=== PATIENT | male | born 1970 | race Hispanic/Latino ===

== ENCOUNTER 2018-07-30 10:13 | Inpatient (IN) | payer OTHER, MEDICARE ==
[~2018-07-30] VITALS: Ht 127 cm; Wt 63.5 kg
[2018-07-30 13:21] LABS: EOSINOPHILS % (AUTO) 0.6 % (0.0-8.0); LYMPHOCYTES % (AUTO) 27.1 % (21.0-51.0); MEAN CORPUSCULAR HEMOGLOBIN 35.9 pg (27.0-33.0); MEAN CORPUSCULAR HGB CONC 34.3 g/dL (32.0-36.0); MEAN CORPUSCULAR VOLUME 104.9 fL (79-99); MONOCYTES % (AUTO) 12.1 % (3.0-13.0); NEUTROPHILS % (AUTO) 59.2 % (40.0-77.0); NUCLEATED RED BLOOD CELLS 0.2 % (0.0-0.19); PLATELET COUNT (AUTO) 201 K/uL (130-400); RED BLOOD CELL COUNT(AUTO) 4.77 MIL/uL (4.50-6.20); RED CELL DISTRIBUTION WIDTH 13.6 % (11.0-15.5); WHITE BLOOD COUNT (AUTO) 3.7 K/uL (4.8-10.8)
[2018-07-30 13:34] LABS: ALBUMIN 3.5 g/dL (3.5-5.0); BILIRUBIN,DIRECT 0.1 mg/dL (0.0-0.3); BILIRUBIN,TOTAL 0.5 mg/dL (0.2-1.0); TOTAL PROTEIN, SERUM 8.1 g/dL (6.0-8.3)
[2018-07-30] MEDS ORDERED: SODIUM CHLORIDE 0.9% 1000ML 1,000 ML IV ONE (14:48)
[2018-07-30] MEDS ORDERED: HYDRALAZINE HCL 20 MG/ML VIAL IV PRN (16:00)
[2018-07-30] MEDS ORDERED: ONDANSETRON HCL 4 MG/2 ML VIAL IV PRN (16:00)
[2018-07-30] MEDS ORDERED: KETOROLAC TROMETHAMINE 30MG/ML ONE (16:47)
[2018-07-30 17:11] LABS: APPEARANCE,URINE CLEAR (CLEAR); BILIRUBIN,URINE Negative (NEGATIVE); COLOR,URINE Yellow (YELLOW); GLUCOSE, URINE (UA) Negative (NEGATIVE); KETONES,URINE Negative (NEGATIVE); LEUKOCYTE ESTERASE ,URINE Negative (NEGATIVE); NITRATE,URINE Negative (NEGATIVE); OCCULT BLOOD,URINE Negative (NEGATIVE); PH,URINE 7.5 (5.0-8.0); PROTEIN,URINE Negative (NEGATIVE); UROBILINOGEN,URINE 0.2 mg/dL (0.2-1.0)
[2018-07-30 17:57] VITALS: BP 122/55
[2018-07-30 19:20] VITALS: BP 113/74
[2018-07-30] MEDS ORDERED: ZOSYN 3.375GM+NS 50ML 50 ML IV SCH (21:00)
[2018-07-30] MEDS: FAMOTIDINE/PF 20 MG/2 ML VIAL IV SCH (21:01)
[2018-07-30] MEDS: MORPHINE SULFATE 2 MG/ML 1ML SYG IV PRN (21:02)
[2018-07-30] MEDS: SODIUM CHLORIDE 0.9% 1000ML 1,000 ML IV SCH (21:03)
[2018-07-31 00:20] VITALS: BP 99/59
[2018-07-31] MEDS: SODIUM CHLORIDE 0.9% 1000ML 1,000 ML IV SCH ×3 (01:58→21:58)
[2018-07-31 04:12] VITALS: BP 112/67
[2018-07-31 05:34] LABS: HEMATOCRIT 46.7 % (42-54); MEAN CORPUSCULAR HEMOGLOBIN 35.3 pg (27.0-33.0); MEAN CORPUSCULAR HGB CONC 33.7 g/dL (32.0-36.0); MEAN CORPUSCULAR VOLUME 104.6 fL (79-99); PLATELET COUNT (AUTO) 199 K/uL (130-400); RED BLOOD CELL COUNT(AUTO) 4.46 MIL/uL (4.50-6.20); RED CELL DISTRIBUTION WIDTH 13.4 % (11.0-15.5); WHITE BLOOD COUNT (AUTO) 2.8 K/uL (4.8-10.8)
[2018-07-31 05:44] LABS: CREATININE 0.9 mg/dL (0.5-1.5); POTASSIUM 3.5 mmol/L (3.5-5.1)
[2018-07-31 07:00] VITALS: BP 126/76
[2018-07-31 07:45] LABS: BASOPHILS % (MANUAL) 3 % (0-2); EOSINOPHILS % (MANUAL) 3 % (1-6); LYMPHOCYTES % (MANUAL) 31 % (22-44); MAN.DIFF COMMENT-IMPRESSION MANUAL DIFFERENTIAL; MONOCYTES % (MANUAL) 13 % (2-9); PLATELET MORPHOLOGY COMMENT ADEQUATE; SEGMENTED NEUTROPHILS % 50 % (40-70)
[2018-07-31] MEDS ORDERED: ZOLP10TA6 PO (10:19)
[2018-07-31] MEDS ORDERED: RIVA4.6T TD (10:19)
[2018-07-31] MEDS ORDERED: MEMA10TA20 PO (10:19)
[2018-07-31 11:00] VITALS: BP 109/67
[2018-07-31] MEDS: FAMOTIDINE/PF 20 MG/2 ML VIAL IV SCH ×2 (11:24→20:06)
[2018-07-31] MEDS: MORPHINE SULFATE 2 MG/ML 1ML SYG IV PRN ×2 (15:21→20:07)
[2018-07-31 16:00] VITALS: BP 110/66
--- NOTE | 2018-07-31 16:39 | NUR ---
MICHAEL FERMIN SEEN W FAMILY MEMBERS AT BEDSIDE. PT HAS DOWNS, CAN VERBIZE NEEDS, BUT IS DEPENDENT FOR MANY ADLS. ADMIT WITH ABDOINAL PAIN. SEB VARELA CONSULT. LIVE WITH MOTHER, HAS NO DMES, AND NO PORIVDER SERVICES, PLAN SIGIFREDO QUINTANA CM TO FOLLOW NEEDED Addendum: 08/03/18 at 1641 by SLOAN SAVAGE RN CM Amended: Links added.
[2018-07-31] MEDS: DOCUSATE NA 100MG/10ML UDCUP PO SCH (21:00)
[2018-08-01 00:18] VITALS: BP 105/50
[2018-08-01 04:15] VITALS: BP 105/50
[2018-08-01 07:00] VITALS: BP 114/69
[2018-08-01 11:00] VITALS: BP 105/66
[2018-08-01] MEDS ORDERED: LORAZEPAM 2 MG/ML 1 ML VIAL IVP PRN (11:30)
[2018-08-01] MEDS: FAMOTIDINE/PF 20 MG/2 ML VIAL IV SCH ×2 (12:33→20:16)
[2018-08-01] MEDS: DOCUSATE NA 100MG/10ML UDCUP PO SCH ×2 (12:33→20:16)
[2018-08-01] MEDS: LACTULOSE 20 GM/30 ML UDCUP PO PRN ×2 (12:33→20:16)
[2018-08-01] MEDS: SODIUM CHLORIDE 0.9% 1000ML 1,000 ML IV SCH ×2 (12:35→20:16)
--- NOTE | 2018-08-01 13:00 | NUR ---
DR SUAREZ IN TO SEE PATIENT ORDERED LOW FAT DIET AND NO PLAN SURGERY
[2018-08-01 16:00] VITALS: BP 116/75
[2018-08-01 20:31] VITALS: BP 128/68
[2018-08-02 00:37] VITALS: BP 106/60
[2018-08-02] MEDS: SODIUM CHLORIDE 0.9% 1000ML 1,000 ML IV SCH (03:58)
[2018-08-02 04:32] VITALS: BP 107/66
[2018-08-02] MEDS: LACTULOSE 20 GM/30 ML UDCUP PO PRN (06:12)
[2018-08-02 08:00] VITALS: BP 113/81
[2018-08-02] MEDS: FAMOTIDINE/PF 20 MG/2 ML VIAL IV SCH ×2 (09:35→21:10)
[2018-08-02] MEDS: DOCUSATE NA 100MG/10ML UDCUP PO SCH ×2 (09:35→21:00)
[2018-08-02 12:01] VITALS: BP 101/50
[2018-08-02] MEDS ORDERED: MAGNESIUM CITRATE 296 ML SOLUTION PO SCH (13:45)
[2018-08-02 16:00] VITALS: BP 95/47
--- NOTE | 2018-08-02 18:00 | NUR ---
PATIENT GIVEN MEDICATION FOR BOWEL MOVEMENT , LAST BOWEL MOVEMENT REPORT 07/27/18. PATIENT WAS ABLE TO HAVE LARGE BOWEL MOVEMENT X2
[2018-08-02 21:49] VITALS: BP 132/80
[2018-08-03 00:29] VITALS: BP 116/83
[2018-08-03 05:10] VITALS: BP 112/69
[2018-08-03 06:27] LABS: HEMATOCRIT 44.8 % (42-54); MEAN CORPUSCULAR HGB CONC 34.2 g/dL (32.0-36.0); MEAN CORPUSCULAR VOLUME 105.2 fL (79-99); NUCLEATED RED BLOOD CELLS 0.1 % (0.0-0.19); PLATELET COUNT (AUTO) 164 K/uL (130-400); RED BLOOD CELL COUNT(AUTO) 4.26 MIL/uL (4.50-6.20); RED CELL DISTRIBUTION WIDTH 13.2 % (11.0-15.5); WHITE BLOOD COUNT (AUTO) 3.6 K/uL (4.8-10.8)
[2018-08-03 06:45] LABS: CREATININE 0.9 mg/dL (0.5-1.5); POTASSIUM 3.6 mmol/L (3.5-5.1)
[2018-08-03 08:55] VITALS: BP 160/83
[2018-08-03] MEDS: DOCUSATE NA 100MG/10ML UDCUP PO SCH (08:55)
[2018-08-03] MEDS: FAMOTIDINE/PF 20 MG/2 ML VIAL IV SCH (08:57)
[2018-08-03] MEDS ORDERED: ENOXAPARIN SODIUM 30 MG/0.3 ML SQ SCH (09:00)
[2018-08-03] MEDS ORDERED: POLY17PO4 PO (11:50)
--- NOTE | 2018-08-03 13:06 | NUR ---
DISCHARGE INSTRUCTION GIVEN TO MOTHER AND SHE VERBALIZED UNDERSTANDING , IV DISCONTINUE WITH CATHETER INTACT AND SITE COVERED WITH BIND-AIDE. INSTRUCTION GIVEN TO FOLLOW-UP WITH PCP DR AHUMADA IN 1-[address] SCHAFER IF NEEDED ( MOTHER HAS DR SCHAFER CARD WITH NUMBER TO CLINIC) NO QUESTIONS OR CONCERNS AND PATIENT WAS TAKING DOWN STRAIR TO [place] VIA HIS OWN WHEELCHAIR AND LEFT WITH FAMILY FOR HOME.
== END 2018-08-03 13:00 | disposition home or self-care (01) | DRG 444 ==
LOC: EDH 10:13 → EDHIP 14:55 → 3DH 17:44
PROVIDERS: ADMIT Hospitalist; ATTEND Hospitalist
DX: K80.00 Calculus of gallbladder with acute cholecystitis without obstruction (principal); K85.90 Acute pancreatitis without necrosis or infection, unspecified; Q90.9 Down syndrome, unspecified; F02.80 Dementia in other diseases classified elsewhere, unspecified severity, without behavioral disturbance, psychotic disturbance, mood disturbance, and anxiety; G30.9 Alzheimer's disease, unspecified; K43.9 Ventral hernia without obstruction or gangrene; K59.00 Constipation, unspecified; Z88.0 Allergy status to penicillin
CPT/HCPCS: 36415; 74176; 76705; 80048; 80076; 81003; 83690; 85025; 85027; G0378; J1650; J1885; J2405; J3490; J7030

== ENCOUNTER 2019-11-11 18:03 | Emergency (ER) | payer OTHER, MEDICARE ==
[~2019-11-11 18:03] MED LIST: MEMA10TA55 PO; POLY17PO4 PO; RIVA4.6T TD; ZOLP10TA6 PO
[2019-11-11 18:45] LABS: HEMATOCRIT 46.7 % (42-54); LYMPHOCYTES % (AUTO) 26.2 % (21.0-51.0); MEAN CORPUSCULAR HEMOGLOBIN 34.5 pg (27.0-33.0); MEAN CORPUSCULAR HGB CONC 34.3 g/dL (32.0-36.0); MEAN CORPUSCULAR VOLUME 100.6 fL (79-99); MONOCYTES % (AUTO) 9.3 % (3.0-13.0); NEUTROPHILS % (AUTO) 62.2 % (40.0-77.0); PLATELET COUNT (AUTO) 172 K/uL (130-400); RED BLOOD CELL COUNT(AUTO) 4.64 MIL/uL (4.50-6.20); RED CELL DISTRIBUTION WIDTH 12.2 % (11.0-15.5)
[2019-11-11 18:56] LABS: CREATININE 0.8 mg/dL (0.5-1.5); POTASSIUM 4.5 mmol/L (3.5-5.1)
[2019-11-11 19:01] LABS: ALBUMIN 3.1 g/dL (3.5-5.0); BILIRUBIN,TOTAL 0.5 mg/dL (0.2-1.0); TOTAL PROTEIN, SERUM 7.5 g/dL (6.0-8.3)
[2019-11-11 20:36] LABS: EOSINOPHILS % (MANUAL) 1 % (1-6); LYMPHOCYTES % (MANUAL) 29 % (22-44); MONOCYTES % (MANUAL) 8 % (2-9); SEGMENTED NEUTROPHILS % 62 % (40-70)
[2019-11-11 20:37] LABS: MAN.DIFF COMMENT-IMPRESSION MANUAL DIFFERENTIAL; PLATELET MORPHOLOGY COMMENT ADEQUATE
== END 2019-11-12 00:39 | disposition home or self-care (01) ==
LOC: EDH 18:03
DX: R19.5 Other fecal abnormalities (principal); F03.90 Unspecified dementia, unspecified severity, without behavioral disturbance, psychotic disturbance, mood disturbance, and anxiety; Z88.0 Allergy status to penicillin; Z88.8 Allergy status to other drugs, medicaments and biological substances; Z79.899 Other long term (current) drug therapy
CPT/HCPCS: 36415; 80053; 82270; 85025; 93005

== ENCOUNTER 2020-04-15 15:27 | Inpatient (IN) | payer OTHER, MEDICARE ==
[~2020-04-15] VITALS: Ht 134.6 cm; Wt 72.1 kg
[2020-04-15 15:56] LABS: BASOPHILS % (AUTO) 1.8 % (0.0-5.0); EOSINOPHILS % (AUTO) 1.3 % (0.0-8.0); HEMATOCRIT 41.8 % (42-54); LYMPHOCYTES % (AUTO) 35.9 % (21.0-51.0); MEAN CORPUSCULAR HEMOGLOBIN 35.6 pg (27.0-33.0); MEAN CORPUSCULAR HGB CONC 36.1 g/dL (32.0-36.0); MEAN CORPUSCULAR VOLUME 98.6 fL (79-99); MONOCYTES % (AUTO) 19.3 % (3.0-13.0); NEUTROPHILS % (AUTO) 41.3 % (40.0-77.0); PLATELET COUNT (AUTO) 208 K/uL (130-400); RED BLOOD CELL COUNT(AUTO) 4.24 MIL/uL (4.50-6.20); RED CELL DISTRIBUTION WIDTH 12.9 % (11.0-15.5); WHITE BLOOD COUNT (AUTO) 2.2 K/uL (4.8-10.8)
[2020-04-15 16:33] LABS: INR 0.96 (0.85-1.15); PARTIAL THROMBOPLASTIN TIME 29.2 SEC (26.3-35.5); PROTHROMBIN TIME 10.4 SEC (9.6-11.6)
[2020-04-15 16:46] LABS: APPEARANCE,URINE Clear (CLEAR); BILIRUBIN,URINE Negative (NEGATIVE); COLOR,URINE Yellow (YELLOW); GLUCOSE, URINE (UA) Negative (NEGATIVE); KETONES,URINE Negative (NEGATIVE); LEUKOCYTE ESTERASE ,URINE Negative (NEGATIVE); NITRATE,URINE Negative (NEGATIVE); OCCULT BLOOD,URINE Negative (NEGATIVE); PH,URINE 7.5 (5.0-8.0); PROTEIN,URINE Negative (NEGATIVE); UROBILINOGEN,URINE 0.2 mg/dL (0.2-1.0)
[2020-04-15 16:53] LABS: AMPHET/METH SCREEN,URINE NEGATIVE (NEGATIVE); BARBITURATE SCREEN, URINE NEGATIVE (NEGATIVE); BENZODIAZEPINES SCREEN,URINE NEGATIVE (NEGATIVE); CANNABINOID SCREEN,URINE NEGATIVE (NEGATIVE); COCAINE SCREEN,URINE NEGATIVE (NEGATIVE); OPIATE SCREEN,URINE NEGATIVE (NEGATIVE); PHENCYCLIDINE SCREEN,URINE NEGATIVE (NEGATIVE)
[2020-04-15 16:54] LABS: ALBUMIN 2.8 g/dL (3.5-5.0); BILIRUBIN,TOTAL 0.3 mg/dL (0.2-1.0); CREATININE 0.6 mg/dL (0.5-1.5); POTASSIUM 4.6 mmol/L (3.5-5.1); TOTAL PROTEIN, SERUM 7.1 g/dL (6.0-8.3)
[2020-04-15 17:50] LABS: LYMPHOCYTES % (MANUAL) 37 % (22-44); MAN.DIFF COMMENT-IMPRESSION MANUAL DIFFERENTIAL; MONOCYTES % (MANUAL) 15 % (2-9); PLATELET MORPHOLOGY COMMENT ADEQUATE; SEGMENTED NEUTROPHILS % 48 % (40-70)
[2020-04-15] MEDS ORDERED: LORAZEPAM 2 MG/ML 1 ML VIAL IVP PRN (18:15)
[2020-04-15] MEDS: SODIUM CHLORIDE 0.9% 1000ML 1,000 ML IV SCH (18:15)
[2020-04-16 02:22] LABS: CREATININE 0.4 mg/dL (0.5-1.5); POTASSIUM 3.9 mmol/L (3.5-5.1)
[2020-04-16] MEDS: SODIUM CHLORIDE 0.9% 1000ML 1,000 ML IV SCH ×2 (07:35→20:55)
[2020-04-16 07:45] LABS: CREATININE 0.5 mg/dL (0.5-1.5); POTASSIUM 4.2 mmol/L (3.5-5.1)
[2020-04-16] MEDS ORDERED: LORAZEPAM 2 MG/ML 1 ML VIAL ONE (14:19)
[2020-04-16 15:43] LABS: CREATININE 0.6 mg/dL (0.5-1.5); POTASSIUM 4.5 mmol/L (3.5-5.1)
[2020-04-16 17:35] VITALS: BP 98/61
[2020-04-16 20:33] VITALS: BP 96/59
[2020-04-16 23:21] LABS: CREATININE 0.5 mg/dL (0.5-1.5); POTASSIUM 4.2 mmol/L (3.5-5.1)
[2020-04-17] VITALS (9 sets, daily range): BP systolic 90–115; BP diastolic 48–73
[2020-04-17] MEDS ORDERED: SERT50TA12 PO (04:07)
[2020-04-17] MEDS ORDERED: PRIM50TA23 PO (04:07)
[2020-04-17 07:09] LABS: CREATININE 0.5 mg/dL (0.5-1.5); POTASSIUM 4.1 mmol/L (3.5-5.1)
[2020-04-17 15:00] LABS: CREATININE 0.5 mg/dL (0.5-1.5); POTASSIUM 4.6 mmol/L (3.5-5.1)
--- NOTE | 2020-04-17 15:49 | NUR ---
RE: Pt has tube feedings of osmolite 8 oz q 4 hours ordered, hospital does not stock osmolite: Per vault attendant Benjie, may substitute with Vital AF at same amounts as done at home. She will review case in the am and adjust as necessary.
--- NOTE | 2020-04-17 18:03 | NUR ---
D/C PLAN CM spoke to patient's flake or shred roll operator Estrella Silva. States she and her care for patient at home. Denies having any home health or provider services. States patient has hospital bed, walker, w/c, recliner, and asa lift. Reports patient is mostly bed bound but does transfer to w/c. CM offered short term snf/rehab as possible discharge option. Foster mother declined. Plan to home. No needs verbalized or identified. CM to follow up. Addendum: 04/17/20 at 1805 by DARRIAN ARREOLA CM Amended: Links added.
[2020-04-17] MEDS ORDERED: SODIUM CHLORIDE 0.9% 500ML 500 ML IV ONE ×2 (20:15→20:19)
[2020-04-17] MEDS: SODIUM CHLORIDE 0.9% 1000ML 1,000 ML IV SCH ×3 (20:22→23:36)
--- NOTE | 2020-04-17 22:24 | NUR ---
2012: I spoke to regarding patient's low b/p during the day, and at this time at 90/40's. Orders received for 500 normal saline flush. Patient's mother made aware, verbalized understanding. 2099: Bloodpressure up to 95/54, rechecked 30 minutes after bolus administered. 2208: Patient's mother called, went to check on patient. Noted twitching to arms, according to mother that is normal for the patient. She stated she was concerned due to patient feels like he has phlegm in his lungs. Noted patient's HOB at 30%. Mother encouraged to keep 45%, to prevent aspiration. Patient did noted to have rhonchi, informed patient . Informed him that was coming by to do his rounds. HOB elevated vital signs 110/56, 81, 02 sat at 99% with 02 at 2 liters per n/c.
--- NOTE | 2020-04-17 23:08 | NUR ---
came by to examine patient informed him that patient has rhonchi, he stated it was due to the normal saline. Orders received to decrease IVF to 50mls/hr. Doctor then went in to see patient and speak with patient's mother. Informed her that he is having low sodium levels and not sure if it's because of the home medications. Mother concerned over the rhonchi, and patient's constipation. Doctor stated he was decreasing the IVF rate and also ordering a chest xray for the morning, and would start patient on senna two tablets daily. doctor aware of patient's twitching, informed the mother that patient probably needing his home medicaiton already. but that for tonight if patient continues restless and twitching Ativen can be administered IV to help him rest. Mother verbalized understanding.
[2020-04-17 23:14] LABS: CREATININE 0.4 mg/dL (0.5-1.5); POTASSIUM 3.9 mmol/L (3.5-5.1)
[2020-04-18 04:12] VITALS: BP 92/55
--- NOTE | 2020-04-18 08:00 | NUR ---
CHEST XRAY 2 view chest xray changed to 1 view pt unable to stand up for 2 view as ordered
[2020-04-18 08:41] VITALS: BP 95/55
[2020-04-18 12:53] VITALS: BP 100/62
[2020-04-18] MEDS: SENNOSIDES 8.6 MG TABLET PO SCH (13:42)
[2020-04-18] MEDS: SODIUM CHLORIDE 0.9% 1000ML 1,000 ML IV SCH ×2 (13:45→19:48)
--- NOTE | 2020-04-18 14:34 | NUR ---
RD NOTIFICATION Pt admitted with Seizures and hyponatremia. Pt with Hx of Down syndrome, oropharyngeal dysphagia. Recommend 4.5 cans Vital AF 1.2/Osmolite 1.2 per day Recommend flushes of 30mls before and after each feeding during hospital stay Recommendations faxed to [facility], RN notified RD NOTE: Recommend increase in formula Pt receives as previous regimen not meeting nutritional needs, flushes surpass fluid needs as well. Pt's mother notified of nutrition recommendations. Mother in agreement. Monitored lab: Na 129, Cl 97, Cr 0.4, BG 107, Ca 8.2, Alb 2.8. Pt obesity Class II. RD to continue to monitor. Addendum: 04/18/20 at [address] RD Amended: Links added.
[2020-04-18 17:30] VITALS: BP 99/70
[2020-04-18 18:39] LABS: CREATININE 0.5 mg/dL (0.5-1.5); POTASSIUM 4.3 mmol/L (3.5-5.1)
[2020-04-18 20:00] VITALS: BP 101/67
[2020-04-18] MEDS: HONEY 1 APPL/ML TUBE TP SCH (20:30)
[2020-04-18] MEDS: PRIMIDONE 50 MG TAB PO SCH (21:00)
--- NOTE | 2020-04-18 21:19 | NUR ---
Primidone 50 mg tablet As per mother's report, she already gave the medicine at 6pm.
[2020-04-19 01:32] VITALS: BP 113/68
[2020-04-19 06:35] VITALS: BP 99/70
[2020-04-19 08:55] VITALS: BP 149/97
[2020-04-19] MEDS: PRIMIDONE 50 MG TAB PO SCH (09:00)
[2020-04-19] MEDS: SENNOSIDES 8.6 MG TABLET PO SCH (11:21)
[2020-04-19 12:54] VITALS: BP 116/69
[2020-04-19] MEDS: HONEY 1 APPL/ML TUBE TP SCH (14:53)
--- NOTE | 2020-04-19 15:17 | NUR ---
CM Note: EMS arranged Received call from primary nurse Annie GRAY, pt will need EMS transport to home, pt has DC order today. CM arranged and faxed EMS today. Request for EMS sent to [facility], confirmation received. Primary nurse to call [facility] once pt ready to DC . Primary nurse Annie GRAY made aware. CM to continue to follow up.
[2020-04-19] MEDS ORDERED: FLU VACC QS2020-21(6MOS UP)/PF 60 MCG/0.5 ML ML IM ONE (15:45)
== END 2020-04-19 21:50 | disposition home or self-care (01) | DRG 101 ==
LOC: EDH 15:27 → EDHIP 17:52 → 3DH 04-16 16:28
PROVIDERS: ADMIT Internal Medicine; ATTEND Internal Medicine
DX: R56.9 Unspecified convulsions (principal); E87.1 Hypo-osmolality and hyponatremia; F72 Severe intellectual disabilities; N39.0 Urinary tract infection, site not specified; R13.12 Dysphagia, oropharyngeal phase; G25.3 Myoclonus; H70.91 Unspecified mastoiditis, right ear; Z93.1 Gastrostomy status; Z23 Encounter for immunization; Q90.9 Down syndrome, unspecified; Z79.899 Other long term (current) drug therapy; Z88.0 Allergy status to penicillin
CPT/HCPCS: 36415; 70450; 71045; 80048; 80053; 80305; 81003; 82550; 82570; 83721; 83930; 83935; 84484; 84540; 85025; 85610; 85730; 93005; G0008; G0378; J2060; J7030; J7040; Q2035

== ENCOUNTER 2021-05-26 11:57 | Inpatient (IN) | payer MEDICARE ==
[~2021-05-26] VITALS: Ht 157.5 cm; Wt 51.7 kg
[~2021-05-26 11:57] MED LIST changes: -MEMA10TA55 PO; -POLY17PO4 PO; +PRIM50TA23 PO; -RIVA4.6T TD
[2021-05-26 12:18] LABS: APPEARANCE,URINE Clear (CLEAR); BILIRUBIN,URINE Negative (NEGATIVE); COLOR,URINE Yellow (YELLOW); GLUCOSE, URINE (UA) Negative (NEGATIVE); KETONES,URINE Negative (NEGATIVE); LEUKOCYTE ESTERASE ,URINE Trace (NEGATIVE); NITRATE,URINE Negative (NEGATIVE); OCCULT BLOOD,URINE Negative (NEGATIVE); PH,URINE 7.5 (5.0-8.0); PROTEIN,URINE Negative (NEGATIVE)
[2021-05-26] MEDS ORDERED: LORAZEPAM 2 MG/ML 1 ML VIAL IVP SCH (12:30)
[2021-05-26] MEDS ORDERED: 0.9%NACL 1000ML 1,000 ML IV SCH (12:30)
[2021-05-26 12:36] LABS: CREATININE 0.6 mg/dL (0.5-1.5); POTASSIUM 3.8 mmol/L (3.5-5.1)
[2021-05-26 12:39] LABS: BACTERIA,URINE None Seen /HPF (None Seen); RBC,URINE 0-1 /HPF (0-1); SQUAMOUS EPITHELIAL CELL,UR 0-2 /HPF (0-2); WBC,URINE 0-1 /HPF (0-1)
[2021-05-26 12:40] LABS: ALBUMIN 2.9 g/dL (3.5-5.0); BILIRUBIN,TOTAL 0.5 mg/dL (0.2-1.0)
[2021-05-26 13:34] LABS: BASOPHILS % (AUTO) 0.5 % (0.0-5.0); HEMATOCRIT 48.5 % (42-54); MEAN CORPUSCULAR HEMOGLOBIN 35.2 pg (27.0-33.0); MEAN CORPUSCULAR VOLUME 103.4 fL (79-99); NEUTROPHILS % (AUTO) 82.3 % (40.0-77.0); PLATELET COUNT (AUTO) 161 K/uL (130-400); RED BLOOD CELL COUNT(AUTO) 4.69 MIL/uL (4.50-6.20); RED CELL DISTRIBUTION WIDTH 13.1 % (11.0-15.5); WHITE BLOOD COUNT (AUTO) 6.6 K/uL (4.8-10.8)
[2021-05-26] MEDS ORDERED: CEFTRIAXONE 1G VIAL IVP ONE (14:30)
[2021-05-26] MEDS ORDERED: 0.9% NACL 250ML 250 ML IV ONE (14:30)
[2021-05-26] MEDS ORDERED: AZITHROMYCIN 500MG+NS 250ML IV ONE (14:30)
[2021-05-26] MEDS ORDERED: LEVE250T2 GT (16:57)
[2021-05-26] MEDS ORDERED: ZOLP5TAB8 GT (16:57)
[2021-05-26] MEDS ORDERED: ONDANSETRON 4MG INJ IVP PRN (17:30)
[2021-05-26] MEDS ORDERED: ACETAMINOPHEN 650 MG/20.3 ML UDCUP PEG PRN (17:30)
[2021-05-26] MEDS ORDERED: 0.9%NACL 100ML 100 ML ONE (18:36)
[2021-05-26] MEDS: MEROPENEM 1 GM VIAL IVP SCH (18:51)
[2021-05-26 22:40] VITALS: BP 101/63
[2021-05-26] MEDS ORDERED: LORAZEPAM 2 MG/ML 1 ML VIAL IVP PRN (23:00)
[2021-05-27] VITALS: BP 101/63
[2021-05-27] MEDS: IPRATROPIUM/ALBUTEROL SULFATE 3 ML SOLUTION IH SCH ×5 (00:04→23:40)
[2021-05-27 02:00] VITALS: BP 116/66
[2021-05-27] MEDS: MEROPENEM 1 GM VIAL IVP SCH ×3 (02:37→20:29)
[2021-05-27 02:45] LABS: ABG BASE EXCESS 0.2 mmol/L (-2.0-3.0); ABG OXYGEN SATURATION 97.5 % (95.0-99.0); ABG PCO2 41 mmHg (35-48)
[2021-05-27 06:06] LABS: HEMATOCRIT 47.8 % (42-54); MEAN CORPUSCULAR HEMOGLOBIN 35.5 pg (27.0-33.0); MEAN CORPUSCULAR HGB CONC 34.7 g/dL (32.0-36.0); MEAN CORPUSCULAR VOLUME 102.4 fL (79-99); RED BLOOD CELL COUNT(AUTO) 4.67 MIL/uL (4.50-6.20); RED CELL DISTRIBUTION WIDTH 13.2 % (11.0-15.5); WHITE BLOOD COUNT (AUTO) 11.2 K/uL (4.8-10.8)
[2021-05-27] MEDS: ACETYLCYSTEINE 20% 200MG/ML 4ML VIAL IH SCH ×4 (06:23→23:40)
[2021-05-27 06:31] LABS: HEMOGLOBIN A1C 4.8 % (4.0-6.0)
[2021-05-27 06:41] LABS: ALBUMIN 2.7 g/dL (3.5-5.0); BILIRUBIN,TOTAL 0.8 mg/dL (0.2-1.0); CREATININE 0.6 mg/dL (0.5-1.5); POTASSIUM 3.9 mmol/L (3.5-5.1); TOTAL PROTEIN, SERUM 7.6 g/dL (6.0-8.3)
[2021-05-27 08:00] VITALS: BP 101/58
[2021-05-27 12:00] VITALS: BP 98/57
[2021-05-27 16:00] VITALS: BP 98/62
[2021-05-27] MEDS: METOCLOPRAMIDE 10 MG/2 ML VIAL IVP SCH ×2 (16:46→21:46)
[2021-05-27] MEDS: BALSAM PERU/CASTOR OIL 60 GM TUBE TP SCH (20:00)
[2021-05-27 20:06] VITALS: BP 145/60
[2021-05-27] MEDS: SOLU-MEDROL 40MG VIAL IVP SCH (21:46)
[2021-05-27] MEDS ORDERED: SODIUM CHLORIDE 3% FOR INHALATION 4 ML/AMP VIAL.NEB IH ONE (23:55)
[2021-05-28] VITALS (9 sets, daily range): BP systolic 79–115; BP diastolic 47–66
[2021-05-28] MEDS ORDERED: SODIUM CHLORIDE 7% INHALATION 4 ML VIAL.NEB IH ONE (00:01)
[2021-05-28] MEDS ORDERED: 0.9%NACL 1000ML 1,000 ML IV ONE (00:43)
[2021-05-28] MEDS ORDERED: 0.9%NACL 1000ML 1,638 ML IV ONE (01:00)
[2021-05-28 01:01] LABS: HEMATOCRIT 46.1 % (42-54); MEAN CORPUSCULAR HEMOGLOBIN 35.8 pg (27.0-33.0); MEAN CORPUSCULAR HGB CONC 35.1 g/dL (32.0-36.0); MEAN CORPUSCULAR VOLUME 101.8 fL (79-99); RED BLOOD CELL COUNT(AUTO) 4.53 MIL/uL (4.50-6.20); RED CELL DISTRIBUTION WIDTH 13.3 % (11.0-15.5); WHITE BLOOD COUNT (AUTO) 15.3 K/uL (4.8-10.8)
[2021-05-28 01:12] LABS: CREATININE 0.6 mg/dL (0.5-1.5); POTASSIUM 3.9 mmol/L (3.5-5.1)
[2021-05-28] MEDS: MEROPENEM 1 GM VIAL IVP SCH ×3 (02:12→17:08)
[2021-05-28] MEDS: METOCLOPRAMIDE 10 MG/2 ML VIAL IVP SCH ×4 (05:25→21:17)
[2021-05-28] MEDS ORDERED: SODIUM CHLORIDE 3% FOR INHALATION 4 ML/AMP VIAL.NEB IH ONE (06:23)
[2021-05-28] MEDS: IPRATROPIUM/ALBUTEROL SULFATE 3 ML SOLUTION IH SCH ×4 (06:40→23:48)
[2021-05-28] MEDS: ACETYLCYSTEINE 20% 200MG/ML 4ML VIAL IH SCH ×4 (06:40→23:48)
[2021-05-28 07:26] LABS: ABG BASE EXCESS -0.4 mmol/L (-2.0-3.0); ABG HCO3 24.4 mmol/L (21.0-28.0); ABG OXYGEN SATURATION 98.2 % (95.0-99.0); ABG PCO2 41 mmHg (35-48)
[2021-05-28 07:29] LABS: ABG BASE EXCESS -0.9 mmol/L (-2.0-3.0); ABG HCO3 23.5 mmol/L (21.0-28.0); ABG OXYGEN SATURATION 98.5 % (95.0-99.0); ABG PCO2 38 mmHg (35-48)
[2021-05-28] MEDS: SOLU-MEDROL 40MG VIAL IVP SCH ×2 (08:14→21:17)
[2021-05-28] MEDS: LEVETIRACETAM 100 MG/ML 5 ML UDCUP PO SCH ×2 (08:15→21:17)
[2021-05-28] MEDS: MIDODRINE HCL 5 MG TABLET PO SCH ×3 (08:15→13:38)
[2021-05-28] MEDS: BALSAM PERU/CASTOR OIL 60 GM TUBE TP SCH (09:50)
[2021-05-29] VITALS (7 sets, daily range): BP systolic 90–106; BP diastolic 48–65
[2021-05-29] MEDS: MEROPENEM 1 GM VIAL IVP SCH ×3 (02:00→17:11)
[2021-05-29] MEDS: METOCLOPRAMIDE 10 MG/2 ML VIAL IVP SCH ×4 (03:48→21:09)
[2021-05-29 04:15] LABS: HEMATOCRIT 45.1 % (42-54); MEAN CORPUSCULAR HEMOGLOBIN 35.3 pg (27.0-33.0); MEAN CORPUSCULAR HGB CONC 34.1 g/dL (32.0-36.0); MEAN CORPUSCULAR VOLUME 103.4 fL (79-99); RED BLOOD CELL COUNT(AUTO) 4.36 MIL/uL (4.50-6.20); WHITE BLOOD COUNT (AUTO) 16.2 K/uL (4.8-10.8)
[2021-05-29 04:25] LABS: CREATININE 0.5 mg/dL (0.5-1.5); MAGNESIUM 2.2 mg/dL (1.80-2.40); POTASSIUM 4.2 mmol/L (3.5-5.1)
[2021-05-29] MEDS: MIDODRINE HCL 5 MG TABLET PO PRN ×2 (05:04→15:44)
[2021-05-29] MEDS: IPRATROPIUM/ALBUTEROL SULFATE 3 ML SOLUTION IH SCH ×4 (06:33→23:26)
[2021-05-29] MEDS: ACETYLCYSTEINE 20% 200MG/ML 4ML VIAL IH SCH ×4 (06:33→23:26)
[2021-05-29] MEDS: SOLU-MEDROL 40MG VIAL IVP SCH ×2 (07:54→21:10)
[2021-05-29] MEDS: BALSAM PERU/CASTOR OIL 60 GM TUBE TP SCH (07:56)
[2021-05-29] MEDS: LEVETIRACETAM 100 MG/ML 5 ML UDCUP PO SCH ×2 (07:57→21:09)
[2021-05-29] MEDS ORDERED: SODIUM CHLORIDE 7% INHALATION 4 ML VIAL.NEB IH ONE (19:24)
[2021-05-30] MEDS: MEROPENEM 1 GM VIAL IVP SCH ×3 (01:55→18:34)
[2021-05-30 03:30] VITALS: BP 97/60
[2021-05-30] MEDS: METOCLOPRAMIDE 10 MG/2 ML VIAL IVP SCH ×4 (03:48→21:02)
[2021-05-30 03:57] LABS: HEMATOCRIT 44.8 % (42-54); MEAN CORPUSCULAR HGB CONC 33.3 g/dL (32.0-36.0); MEAN CORPUSCULAR VOLUME 105.2 fL (79-99); PLATELET COUNT (AUTO) 169 K/uL (130-400); RED BLOOD CELL COUNT(AUTO) 4.26 MIL/uL (4.50-6.20); WHITE BLOOD COUNT (AUTO) 11.5 K/uL (4.8-10.8)
[2021-05-30 04:08] LABS: CREATININE 0.6 mg/dL (0.5-1.5); POTASSIUM 4.4 mmol/L (3.5-5.1)
[2021-05-30 07:00] VITALS: BP 93/52
[2021-05-30] MEDS: IPRATROPIUM/ALBUTEROL SULFATE 3 ML SOLUTION IH SCH ×4 (07:45→23:18)
[2021-05-30] MEDS: ACETYLCYSTEINE 20% 200MG/ML 4ML VIAL IH SCH ×3 (07:46→18:12)
[2021-05-30 08:59] LABS: ABG BASE EXCESS 5.5 mmol/L (-2.0-3.0); ABG HCO3 31.3 mmol/L (21.0-28.0); ABG OXYGEN SATURATION 99.7 % (95.0-99.0); ABG PCO2 50 mmHg (35-48)
[2021-05-30] MEDS: SOLU-MEDROL 40MG VIAL IVP SCH ×2 (09:19→20:56)
[2021-05-30] MEDS: LEVETIRACETAM 100 MG/ML 5 ML UDCUP PO SCH ×2 (09:19→20:56)
[2021-05-30] MEDS: BALSAM PERU/CASTOR OIL 60 GM TUBE TP SCH (09:58)
[2021-05-30 11:00] VITALS: BP 91/55
[2021-05-30 16:00] VITALS: BP 94/66
[2021-05-30 19:38] VITALS: BP 97/69
[2021-05-30 23:03] VITALS: BP 102/63
[2021-05-31] MEDS: MEROPENEM 1 GM VIAL IVP SCH ×3 (01:49→17:59)
[2021-05-31 03:17] VITALS: BP 99/58
[2021-05-31] MEDS: METOCLOPRAMIDE 10 MG/2 ML VIAL IVP SCH ×4 (03:34→21:20)
[2021-05-31] MEDS: IPRATROPIUM/ALBUTEROL SULFATE 3 ML SOLUTION IH SCH ×4 (06:38→23:19)
[2021-05-31 08:59] VITALS: BP 100/61
[2021-05-31] MEDS: BALSAM PERU/CASTOR OIL 60 GM TUBE TP SCH (09:58)
[2021-05-31] MEDS: SOLU-MEDROL 40MG VIAL IVP SCH ×2 (10:01→21:21)
[2021-05-31] MEDS: LEVETIRACETAM 100 MG/ML 5 ML UDCUP PO SCH ×2 (10:01→21:21)
[2021-05-31 12:59] VITALS: BP 90/54
[2021-05-31 16:30] VITALS: BP 100/65
[2021-05-31] MEDS: LACTULOSE 20 GM/30 ML UDCUP GT SCH (18:00)
[2021-05-31 19:44] VITALS: BP 108/58
[2021-05-31 23:41] VITALS: BP 106/67
[2021-06-01] VITALS (7 sets, daily range): BP systolic 102–137; BP diastolic 55–84
[2021-06-01] MEDS: LACTULOSE 20 GM/30 ML UDCUP GT SCH ×4 (00:39→16:11)
[2021-06-01] MEDS: MEROPENEM 1 GM VIAL IVP SCH ×3 (03:22→17:50)
[2021-06-01] MEDS: METOCLOPRAMIDE 10 MG/2 ML VIAL IVP SCH ×4 (03:22→21:14)
[2021-06-01] MEDS: IPRATROPIUM/ALBUTEROL SULFATE 3 ML SOLUTION IH SCH ×4 (06:58→23:17)
[2021-06-01] MEDS: SOLU-MEDROL 40MG VIAL IVP SCH ×2 (08:28→21:34)
[2021-06-01] MEDS: LEVETIRACETAM 100 MG/ML 5 ML UDCUP PO SCH ×2 (08:32→21:33)
[2021-06-01] MEDS: BALSAM PERU/CASTOR OIL 60 GM TUBE TP SCH (08:38)
[2021-06-01] MEDS: FUROSEMIDE 20MG VIAL IVP SCH ×2 (11:59→22:17)
[2021-06-01] MEDS: BUDESONIDE 0.5 MG/2 ML INH IH SCH (18:32)
[2021-06-02] MEDS: MEROPENEM 1 GM VIAL IVP SCH ×3 (02:02→17:01)
[2021-06-02 03:00] VITALS: BP 121/84
[2021-06-02 03:13] LABS: ABG BASE EXCESS 9.9 mmol/L (-2.0-3.0); ABG HCO3 34.2 mmol/L (21.0-28.0); ABG PCO2 44 mmHg (35-48)
[2021-06-02 03:39] LABS: HEMATOCRIT 45.3 % (42-54); MEAN CORPUSCULAR HEMOGLOBIN 34.8 pg (27.0-33.0); MEAN CORPUSCULAR HGB CONC 33.3 g/dL (32.0-36.0); MEAN CORPUSCULAR VOLUME 104.4 fL (79-99); RED BLOOD CELL COUNT(AUTO) 4.34 MIL/uL (4.50-6.20); RED CELL DISTRIBUTION WIDTH 12.5 % (11.0-15.5); WHITE BLOOD COUNT (AUTO) 5.3 K/uL (4.8-10.8)
[2021-06-02 03:45] LABS: CREATININE 0.6 mg/dL (0.5-1.5); MAGNESIUM 2.1 mg/dL (1.80-2.40); POTASSIUM 4.1 mmol/L (3.5-5.1)
[2021-06-02] MEDS: METOCLOPRAMIDE 10 MG/2 ML VIAL IVP SCH ×4 (04:00→23:16)
[2021-06-02 07:00] VITALS: BP 97/59
[2021-06-02] MEDS: IPRATROPIUM/ALBUTEROL SULFATE 3 ML SOLUTION IH SCH ×4 (07:05→23:33)
[2021-06-02] MEDS: BUDESONIDE 0.5 MG/2 ML INH IH SCH ×2 (07:05→18:58)
[2021-06-02] MEDS: LACTULOSE 20 GM/30 ML UDCUP PEG SCH ×2 (08:49→20:46)
[2021-06-02] MEDS: BALSAM PERU/CASTOR OIL 60 GM TUBE TP SCH (08:49)
[2021-06-02] MEDS: SOLU-MEDROL 40MG VIAL IVP SCH (08:49)
[2021-06-02] MEDS: LEVETIRACETAM 100 MG/ML 5 ML UDCUP PO SCH ×2 (08:49→20:47)
[2021-06-02] MEDS: FUROSEMIDE 20MG VIAL IVP SCH ×2 (10:24→23:17)
[2021-06-02 11:00] VITALS: BP 128/51
[2021-06-02 16:00] VITALS: BP 91/59
[2021-06-02 19:09] VITALS: BP 113/63
[2021-06-02 23:48] VITALS: BP 95/63
[2021-06-03] MEDS: MEROPENEM 1 GM VIAL IVP SCH ×3 (01:52→17:09)
[2021-06-03] MEDS: METOCLOPRAMIDE 10 MG/2 ML VIAL IVP SCH ×4 (03:09→21:00)
[2021-06-03 03:26] VITALS: BP 125/67
[2021-06-03 07:00] VITALS: BP 111/60
[2021-06-03] MEDS: IPRATROPIUM/ALBUTEROL SULFATE 3 ML SOLUTION IH SCH ×4 (07:08→23:22)
[2021-06-03] MEDS: BUDESONIDE 0.5 MG/2 ML INH IH SCH ×2 (07:08→19:45)
[2021-06-03 08:50] LABS: ABG BASE EXCESS 15.7 mmol/L (-2.0-3.0); ABG OXYGEN SATURATION 80.9 % (95.0-99.0); ABG PCO2 46 mmHg (35-48)
[2021-06-03] MEDS: LEVETIRACETAM 100 MG/ML 5 ML UDCUP PO SCH ×2 (08:56→21:00)
[2021-06-03] MEDS: PREDNISONE 20 MG TABLET PO SCH (08:56)
[2021-06-03] MEDS: LACTULOSE 20 GM/30 ML UDCUP PEG SCH ×2 (08:57→21:00)
[2021-06-03] MEDS: BALSAM PERU/CASTOR OIL 60 GM TUBE TP SCH (08:57)
[2021-06-03 11:00] VITALS: BP 91/60
[2021-06-03 15:00] VITALS: BP 110/59
[2021-06-03 19:08] VITALS: BP 145/66
[2021-06-03 23:11] VITALS: BP 96/57
[2021-06-04] MEDS: MEROPENEM 1 GM VIAL IVP SCH ×3 (03:00→17:16)
[2021-06-04 03:10] VITALS: BP 90/54
[2021-06-04] MEDS: METOCLOPRAMIDE 10 MG/2 ML VIAL IVP SCH ×4 (03:29→21:37)
[2021-06-04 03:51] LABS: EOSINOPHILS % (AUTO) 0.7 % (0.0-8.0); HEMATOCRIT 44.7 % (42-54); LYMPHOCYTES % (AUTO) 26.8 % (21.0-51.0); MEAN CORPUSCULAR HEMOGLOBIN 35.3 pg (27.0-33.0); MONOCYTES % (AUTO) 18.1 % (3.0-13.0); NEUTROPHILS % (AUTO) 52.7 % (40.0-77.0); PLATELET COUNT (AUTO) 169 K/uL (130-400)
[2021-06-04 04:05] LABS: CREATININE 0.5 mg/dL (0.5-1.5); MAGNESIUM 2.5 mg/dL (1.80-2.40); PHOSPHORUS 3.1 mg/dL (2.5-4.9); POTASSIUM 3.6 mmol/L (3.5-5.1)
[2021-06-04 04:18] LABS: B-TYPE NATRIURETIC PEPTIDE 36 pg/mL (0-100)
[2021-06-04 04:30] LABS: EOSINOPHILS % (MANUAL) 1 % (1-6); LYMPHOCYTES % (MANUAL) 27 % (22-44); MAN.DIFF COMMENT-IMPRESSION MANUAL DIFFERENTIAL; MONOCYTES % (MANUAL) 17 % (2-9); SEGMENTED NEUTROPHILS % 55 % (40-70)
[2021-06-04 05:00] LABS: ABG BASE EXCESS 13.6 mmol/L (-2.0-3.0); ABG HCO3 38.9 mmol/L (21.0-28.0); ABG OXYGEN SATURATION 96.5 % (95.0-99.0); ABG PCO2 51 mmHg (35-48)
[2021-06-04] MEDS: BUDESONIDE 0.5 MG/2 ML INH IH SCH ×2 (06:47→18:52)
[2021-06-04] MEDS: IPRATROPIUM/ALBUTEROL SULFATE 3 ML SOLUTION IH SCH ×4 (06:47→23:48)
[2021-06-04 07:00] VITALS: BP 92/48
[2021-06-04] MEDS: PREDNISONE 20 MG TABLET PO SCH (08:08)
[2021-06-04] MEDS: LEVETIRACETAM 100 MG/ML 5 ML UDCUP PO SCH ×2 (08:08→21:36)
[2021-06-04] MEDS: ENOXAPARIN SODIUM 40 MG/0.4 ML SYRINGE SQ SCH (08:09)
[2021-06-04] MEDS: BALSAM PERU/CASTOR OIL 60 GM TUBE TP SCH (08:09)
[2021-06-04] MEDS: LACTULOSE 20 GM/30 ML UDCUP PEG SCH ×2 (08:16→21:36)
[2021-06-04 11:00] VITALS: BP 102/69
[2021-06-04 15:00] VITALS: BP 101/62
[2021-06-04 19:55] VITALS: BP 100/56
[2021-06-05] VITALS (7 sets, daily range): BP systolic 80–147; BP diastolic 50–110
[2021-06-05] MEDS: MEROPENEM 1 GM VIAL IVP SCH ×3 (02:29→17:07)
[2021-06-05] MEDS: METOCLOPRAMIDE 10 MG/2 ML VIAL IVP SCH ×4 (03:47→22:26)
[2021-06-05] MEDS: BUDESONIDE 0.5 MG/2 ML INH IH SCH ×2 (06:42→18:59)
[2021-06-05] MEDS: IPRATROPIUM/ALBUTEROL SULFATE 3 ML SOLUTION IH SCH ×4 (06:42→23:34)
[2021-06-05] MEDS: LACTULOSE 20 GM/30 ML UDCUP PEG SCH ×2 (08:12→22:26)
[2021-06-05] MEDS: PREDNISONE 20 MG TABLET PO SCH (08:12)
[2021-06-05] MEDS: LEVETIRACETAM 100 MG/ML 5 ML UDCUP PO SCH ×2 (08:14→22:27)
[2021-06-05] MEDS: BALSAM PERU/CASTOR OIL 60 GM TUBE TP SCH (08:16)
[2021-06-05] MEDS: ENOXAPARIN SODIUM 40 MG/0.4 ML SYRINGE SQ SCH (08:16)
[2021-06-05 11:02] LABS: ABG BASE EXCESS 13.4 mmol/L (-2.0-3.0); ABG OXYGEN SATURATION 94.7 % (95.0-99.0); ABG PCO2 52 mmHg (35-48)
[2021-06-06 03:40] VITALS: BP 102/66
[2021-06-06] MEDS: MEROPENEM 1 GM VIAL IVP SCH (05:09)
[2021-06-06] MEDS: METOCLOPRAMIDE 10 MG/2 ML VIAL IVP SCH (05:09)
[2021-06-06] MEDS: IPRATROPIUM/ALBUTEROL SULFATE 3 ML SOLUTION IH SCH (06:55)
[2021-06-06] MEDS: BUDESONIDE 0.5 MG/2 ML INH IH SCH (06:55)
[2021-06-06 07:58] VITALS: BP 89/56
[2021-06-06] MEDS: LEVETIRACETAM 100 MG/ML 5 ML UDCUP PO SCH (09:11)
[2021-06-06] MEDS: LACTULOSE 20 GM/30 ML UDCUP PEG SCH (09:12)
[2021-06-06] MEDS: BALSAM PERU/CASTOR OIL 60 GM TUBE TP SCH (09:13)
[2021-06-06] MEDS: ENOXAPARIN SODIUM 40 MG/0.4 ML SYRINGE SQ SCH (09:13)
[2021-06-06 11:08] VITALS: BP 86/53
[2021-06-06] MEDS ORDERED: METOCLOPRAMIDE 10 MG/2 ML VIAL IVP SCH (12:00)
[2021-06-06] MEDS ORDERED: MEROPENEM 1 GM VIAL IVP SCH (14:00)
== END 2021-06-06 15:40 | disposition hospice, home (50) | DRG 871 ==
LOC: EDH 11:57 → EDHIP 14:20 → 3AH 21:35 → 2DH 05-28 09:32
PROVIDERS: ADMIT Internal Medicine Infectious Disease; ATTEND Internal Medicine Infectious Disease
PROC: 5A09357 Assistance with Respiratory Ventilation, Less than 24 Consecutive Hours, Continuous Positive Airway Pressure (ICD-10-PCS; principal; 2021-05-27)
PROC: 5A09557 Assistance with Respiratory Ventilation, Greater than 96 Consecutive Hours, Continuous Positive Airway Pressure (ICD-10-PCS; 2021-05-27)
PROC: 5A0935A Assistance with Respiratory Ventilation, Less than 24 Consecutive Hours, High Flow/Velocity Cannula (ICD-10-PCS; 2021-06-01)
PROC: 5A0935A Assistance with Respiratory Ventilation, Less than 24 Consecutive Hours, High Flow/Velocity Cannula (ICD-10-PCS; 2021-06-02)
PROC: 5A09357 Assistance with Respiratory Ventilation, Less than 24 Consecutive Hours, Continuous Positive Airway Pressure (ICD-10-PCS; 2021-06-03)
PROC: 5A09357 Assistance with Respiratory Ventilation, Less than 24 Consecutive Hours, Continuous Positive Airway Pressure (ICD-10-PCS; 2021-06-04)
PROC: 5A09357 Assistance with Respiratory Ventilation, Less than 24 Consecutive Hours, Continuous Positive Airway Pressure (ICD-10-PCS; 2021-06-05)
PROC: 5A0935A Assistance with Respiratory Ventilation, Less than 24 Consecutive Hours, High Flow/Velocity Cannula (ICD-10-PCS; 2021-06-05)
PROC: 5A09357 Assistance with Respiratory Ventilation, Less than 24 Consecutive Hours, Continuous Positive Airway Pressure (ICD-10-PCS; 2021-06-06)
DX: A41.9 Sepsis, unspecified organism (principal); J69.0 Pneumonitis due to inhalation of food and vomit; J96.22 Acute and chronic respiratory failure with hypercapnia; J96.21 Acute and chronic respiratory failure with hypoxia; G92.8 Other toxic encephalopathy; G40.901 Epilepsy, unspecified, not intractable, with status epilepticus; Q90.9 Down syndrome, unspecified; Z66 Do not resuscitate; L89.152 Pressure ulcer of sacral region, stage 2; R13.12 Dysphagia, oropharyngeal phase; K59.09 Other constipation; F79 Unspecified intellectual disabilities; R53.81 Other malaise; F03.90 Unspecified dementia, unspecified severity, without behavioral disturbance, psychotic disturbance, mood disturbance, and anxiety; Z93.1 Gastrostomy status; Z74.01 Bed confinement status; Z82.49 Family history of ischemic heart disease and other diseases of the circulatory system; Z88.0 Allergy status to penicillin; I51.7 Cardiomegaly
CPT/HCPCS: 31720; 36415; 36600; 71045; 71250; 80048; 80053; 80177; 81001; 82140; 82435; 82803; 82947; 82948; 83036; 83605; 83735; 83880; 84100; 84132; 84145; 84295; 85018; 85025; 85027; 87040; 87071; 87205; 87635; 87804; 93005; 93306; 93970; 94640; 94660; 94664; 94667; 94668; 94760; 99291; A4606; C9803; G0378; J0456; J0696; J1650; J1940; J2060; J2185; J2765; J2920; J7030; J7608

== ENCOUNTER 2023-10-12 10:19 | Emergency (ER) | payer MEDICARE ==
[~2023-10-12] VITALS: Ht 149.9 cm; Wt 61.2 kg
[~2023-10-12 10:19] MED LIST changes: +LEVE250T2 GT; +SULF473O10 PO; +ZOLP5TAB8 GT
[2023-10-12 10:24] VITALS: BP 104/71; PULSE 87; RESP 20; O2SAT 97
[2023-10-12] MEDS ORDERED: DIATR MEGLU/DIATRIZOATE SODIUM 30 ML BOTTLE ONE (10:30)
== END 2023-10-12 11:47 | disposition home or self-care (01) ==
LOC: EDH 10:19
DX: K94.23 Gastrostomy malfunction (principal); F03.90 Unspecified dementia, unspecified severity, without behavioral disturbance, psychotic disturbance, mood disturbance, and anxiety; Z79.899 Other long term (current) drug therapy; Z98.890 Other specified postprocedural states; Z88.0 Allergy status to penicillin
CPT/HCPCS: 99284; 43762; 74018; Q9963

== ENCOUNTER 2024-09-20 14:58 | Emergency (ER) | payer MEDICARE ==
[~2024-09-20] VITALS: Ht 160 cm; Wt 70.3 kg
[2024-09-20] MEDS ORDERED: DIATR MEGLU/DIATRIZOATE SODIUM 30 ML BOTTLE ONE (15:48)
--- NOTE | 2024-09-20 16:20 | HMCIMG ---
Exam Type: ABD 1VW Clinical Information: PEG PLACEMENT Comparison: None Findings: XR Eval Gastrostomy Perc W/ Contrast TECHNIQUE: Single view of the abdomen was obtained. 30 cc of Gastrografin injected through the gastric tube. Contrast outlines the stomach and small bowel. There is no evidence of extravasation. Abundant fecal matter is noted throughout the colon consistent with constipation. IMPRESSION: Gastric tube in good position within the stomach.
--- NOTE | 2024-09-20 16:24 | ERN ---
General Chief Complaint: Other Problems Stated Complaint: PEG DISLODGEMENT Time Seen by MD: 15:03 Source: patient History of Present Illness Initial Comments PATIENT IS A 54-YEAR-OLD MALE COMING IN DUE TO PEG TUBE DISLODGEMENT. PATIENT IS A POOR HISTORIAN DUE TO MENTAL PASSIVELY. HISTORIAN IS MOTHER WAS AT BEDSIDE. PER MOTHER PEG TUBE DISLODGED EARLIER TODAY. Allergies: Coded Allergies: Penicillins (Verified Allergy, Unknown, 07/30/18) Home Meds Active Scripts Sulfamethoxazole/Trimethoprim (Sulfatrim Pediatric Suspension) 473 Ml Oral.susp, 800 ML PO BID for 7 Days, #140 ML Prov:RAYMUNDOOLINDA EMERGENCY MANAGEMENT PROGRAM SPECIALIST 09/13/22 Reported Medications Zolpidem Tartrate (Zolpidem Tartrate) 5 Mg Tablet, 10 MG GT HSPRN, TAB 05/26/21 Levetiracetam (Levetiracetam) 250 Mg Tablet, 250 MG GT BID, TAB 05/26/21 Primidone (Mysoline) 50 Mg Tablet, 50 MG PO BID, TAB 04/17/20 Zolpidem Tartrate (Zolpidem Tartrate) 10 Mg Tablet, 10 MG PO HS PRN for RESTLESSNESS, TAB 07/31/18 Past Medical History Past Medical History: Dementia, Other Medical History Other: DOWN SYNDROME Past Surgical History: Other Surgical History Other: PEG Social History Social History: Lives with family ROS Dictation LIMITED DUE TO MENTAL CAPACITY Physical Exam Physical Exam Dictation VITAL SIGNS: REVIEWED. GENERAL APPEARANCE: ALERT, ORIENTED X3, NO ACUTE DISTRESS, OBESE. HEAD AND FACE: NON-TRAUMATIC. EYES: PERRL, PINK CONJUNCTIVAS, EYELID NO TRAUMA, ANTERIOR CHAMBER CLEAR. EARS: PINNAS INTACT AND NO SIGNS OF TRAUMA OR ERYTHEMA. EAR CANALS CLEAR AND NO DISCHARGE. TMS NO ERYTHEMA. NOSE: NO DISCHARGE, NO BLEEDING. OROPHARYNX: MOUTH NORMAL, TEETH NO CARIES, TONGUE PINK. PHARYNX CLEAR, NO ERYTHEMA. TONSILS NO EXUDATES, NO ABSCESSES NOTED. MUCOUS MEMBRANE MOIST. NECK: SUPPLE, NON-TENDER, NO THYROMEGALY, NO MASSES, NO JVD, NO BRUITS. BREAST: DEFERRED. CHEST: NO TENDERNESS, NO CREPITUS, NO PARADOXICAL MOVEMENT, NO RETRACTIONS. LUNGS: CLEAR, WELL-VENTILATED, SYMMETRIC, NO RALES, NO WHEEZING, NO RHONCHI, NO STRIDOR, GOOD BREATH SOUNDS BILATERALLY. HEART: REGULAR RATE, REGULAR RHYTHM, NO MURMUR, NO GALLOPS. VASCULAR: NO PERIPHERAL EDEMA. ABDOMEN: SOFT, POSITIVE BOWEL SOUNDS, NONDISTENDED, NO GUARDING, NONTENDER, NO REBOUND, PEG TUBE DISLODGED, RECTAL: DEFERRED. GENITAL: DEFERRED. NEUROLOGICAL: NORMAL SPEECH, GROSS MOTOR FUNCTION INTACT, GROSS SENSORY FUNCTION INTACT. MUSCULOSKELETAL: NECK NONTENDER, FULL RANGE OF MOTION, BACK NONTENDER, FULL RANGE OF MOTION. EXTREMITIES: NONTENDER, FULL RANGE OF MOTION. SKIN: COLOR PINK, DRY, NO TURGOR, NO RASH, NO LACERATIONS, NO ABRASIONS, NO CONTUSIONS. LYMPHATICS: DEFERRED. Results Laboratory and Microbiology Labs Reviewed?: Yes EKG/XRAY/US/CT/MRI X-RAY Comment [address] [address] IMAGING REPORT Signed PATIENT: RACHID VAZQUEZ MR#: [id number] : 1970 SEX: M AGE: 54 LOCATION: [facility] ORDER 1532 STATUS: REG ER REPORT#: [id number] SERVICE 1531 REASON: PEG PLACEMENT ORDERING PHYSICIAN: DARRION CHOWDHURY MD PROCEDURE: ABD 1VW - ABD 1VW Exam Type: ABD 1VW Clinical Information: PEG PLACEMENT Comparison: None Findings: XR Eval Gastrostomy Perc W/ Contrast TECHNIQUE: Single view of the abdomen was obtained. 30 cc of Gastrografin injected through the gastric tube. Contrast outlines the stomach and small bowel. There is no evidence of extravasation. Abundant fecal matter is noted throughout the colon consistent with constipation. IMPRESSION: Gastric tube in good position within the stomach. DICTATED BY: AJAY DOUGLASS MD DATE: 09/20/24 161 ELECTRONICALLY SIGNED BY: AJAY DOUGLASS MD DATE: 09/20/24 162 [facility] MDM: DIFFERENTIAL DIAGNOSIS: PEG TUBE MALFUNCTION, PEG TUBE DISLODGED, PEG TUBE REPLACEMENT, RATIONALE: TESTS CONSIDERED AND ORDERED SECONDARY TO SHARED DECISION MAKING INCLUDE: PREVIOUS OUTSIDE RECORDS REVIEWED: OLD ER VISITS. PATIENT WAS HERE FOR PEG TUBE REPLACEMENT. EARLIER TODAY THE PEG TUBE WAS DISLODGED PATIENT WAS HERE FOR PEG TUBE REPLACEMENT. PEG TUBE WAS REPLACED IMAGING STUDIES WITH CONTRAST WERE PERFORMED PROPER POSITIONING WAS SEEN. PATIENT WILL BE DISCHARGED IN STABLE CONDITION WITH A DIAGNOSIS OF PEG TUBE REP LACEMENT. ED Course Orders Procedure Category Date Status Time Abd 1vw RAD 09/20/24 Resulted 15:31 Diatr PHA 09/20/24 Complete Meglu/Diatrizoate 15:48 Current Medications Medications (Trade) Dose Ordered Sig/Ronn Route PRN Reason Start Time Stop Time Status Last Admin Dose Admin Diatrizoate Meglum/ Diatrizoate Sod (Gastrografin 66-10 Solution) 30 ml STK-MED ONCE .ROUTE 09/20/24 15:48 09/20/24 15:48 DC Vital Signs Date Time Temp Pulse Resp B/P (MAP) Pulse Ox O2 Delivery O2 Flow Rate FiO2 09/20/24 16:16 58 17 119/96 98 Room Air* 0 21 09/20/24 15:03 98.2 62 18 125/77 95 Nasal Cannula 4.0 DX & DISP Disposition: Discharge Departure Impression: Primary Impression: Encounter for feeding tube placement Condition: Stable Additional Instructions: FOLLOW-UP WITH PRIMARY CARE PROVIDER IN 1 TO 2 DAYS. TAKE MEDICATIONS DIRECTED HERE IN THE EMERGENCY ROOM. OKAY TO CONTINUE HOME MEDICATIONS UNLESS OTHERWISE DISCUSSED DURING YOUR VISIT IN THE EMERGENCY ROOM TODAY. RETURN TO YOUR NEAREST EMERGENCY ROOM IF SYMPTOMS WORSEN OR IF THERE IS NO IMPROVEMENT. CALL 911 IF YOU NEED IMMEDIATE ASSISTANCE. TAKE TYLENOL [id number] NEEDED AND IF NO CONTRAINDICATIONS ARE PRESENT. INCREASE ORAL HYDRATION. A WOUND CULTURE OR URINE CULTURE WAS ORDERED HERE IN THE EMERGENCY ROOM DEPARTMENT PLEASE FOLLOW-UP WITH PRIMARY CARE PROVIDER AND ADVISE THEM TO GET REPEAT PORTS FROM OUR FACILITY. IF YOU HAD ANY TRISTA WRAP/SPLINTS THAT WERE APPLIED HERE, PLEASE DO NOT REMOVE THEM UNTIL YOU SEE YOUR PRIMARY CARE OR SPECIALTY. REFERRALS: Referrals: VARGAS AHUMADA MD (PCP) Time of Disposition: 16:26 DARRION CHOWDHURY MD Sep 20, 2024 16:24
--- NOTE | 2024-09-20 16:55 | NUR ---
PT TRANSPORT: [facility] CALLED AND [facility]CS FORM SENT FOR PT TRANSPORT TO HOME.
[2024-09-20 18:46] VITALS: BP 146/99; PULSE 98; RESP 22; TEMP 97.5; O2SAT 96
== END 2024-09-20 20:12 | disposition home or self-care (01) ==
LOC: EDH 14:58
DX: K94.29 Other complications of gastrostomy (principal); Z88.0 Allergy status to penicillin; Z79.899 Other long term (current) drug therapy
CPT/HCPCS: 99284; 43762; 74018; Q9963

== ENCOUNTER 2024-09-21 20:54 | Emergency (ER) | payer MEDICARE ==
[~2024-09-21] VITALS: Ht 165.1 cm; Wt 99.8 kg
--- NOTE | 2024-09-21 21:45 | NUR ---
PEG TUBE REPLACED BY DR. GILLIAM AT THIS TIME, PT TOLERATED WELL, NO SIGNS OF ACTUE DISTRESS NOTED, PEG TUBE REPLACED WITH EASE, NO SIGNS OF IRRITIATION OR RESISTANCE WITH REPLACEMENT
--- NOTE | 2024-09-21 21:50 | ERN ---
ED Note History of Present Illness Stated Complaint: DISLODGED PEG TUBE Chief Complaint: Other Problems Time Seen by MD: 21:27 Dictation: Patient is a 54-year-old male dependent on a PEG tube for nutrition. It became dislodged at his facility. Allergies: Coded Allergies: Penicillins (Verified Allergy, Unknown, 07/30/18) Home Meds Active Scripts Sulfamethoxazole/Trimethoprim (Sulfatrim Pediatric Suspension) 473 Ml Oral.susp, 800 ML PO BID for 7 Days, #140 ML Prov:OLINDA FONSECA ADMITTED ATTORNEYS 09/13/22 Reported Medications Zolpidem Tartrate (Zolpidem Tartrate) 5 Mg Tablet, 10 MG GT HSPRN, TAB 05/26/21 Levetiracetam (Levetiracetam) 250 Mg Tablet, 250 MG GT BID, TAB 05/26/21 Primidone (Mysoline) 50 Mg Tablet, 50 MG PO BID, TAB 04/17/20 Zolpidem Tartrate (Zolpidem Tartrate) 10 Mg Tablet, 10 MG PO HS PRN for RESTLESSNESS, TAB 07/31/18 Past Medical History Past Medical History: Dementia, Other Additional Past Medical Hx: DOWN SYNDROME, TREMORS Surgical History: Other Surgical History Other: PEG Social History: Lives with family Review of System Dictation Unable to obtain review of systems as the patient is non communicative. Gab carlson's mother states that the only problem he has right now is the dislodged PEG tube and no other symptoms. Therefore review of systems is negative. Initial Vital Sign VS Vital Signs Date Time Temp Pulse Resp B/P (MAP) Pulse Ox O2 Delivery O2 Flow Rate FiO2 09/21/24 20:55 98.1 72 16 136/84 96 Nasal Cannula 2.0 Physical Exam Dictation Patient is lying in bed with a PEG tube in the plastic envelope on top of his bed sheets. The abdomen is soft nontender nondistended there are no signs of infection anywhere surrounding the PEG tube site the PEG tube site shows a nice mature gastric mucosa well adherent to the surrounding skin. ED Course ED Course Vital Signs Date Time Temp Pulse Resp B/P (MAP) Pulse Ox O2 Delivery O2 Flow Rate FiO2 09/21/24 20:55 98.1 72 16 136/84 96 Nasal Cannula 2.0 Medical Decision Making MDM A new PEG tube was was easily inserted the PEG tube balloon inflated with 15 cc of water. Patient discharged from the emergency room DX & DISP Disposition: Discharge Departure Impression: Primary Impression: Encounter for feeding tube placement Condition: Stable Referrals: VARGAS AHUMADA MD (PCP) YENI GILLIAM MD Sep 21, 2024 21:50
[2024-09-21 23:05] VITALS: BP 152/89; PULSE 83; RESP 18; TEMP 98.4; O2SAT 96
== END 2024-09-21 23:23 | disposition home or self-care (01) ==
LOC: EDH 20:54
DX: K94.23 Gastrostomy malfunction (principal); Z88.0 Allergy status to penicillin
CPT/HCPCS: 43762; 99284